=== PATIENT | male | born 1955 | race Caucasian/White ===

== ENCOUNTER 2017-09-03 19:04 | Inpatient (IN) | payer OTHER ==
[~2017-09-03] VITALS: Ht 170.2 cm; Wt 68.1 kg
[2017-09-03 19:05] VITALS: BP 115/76
[2017-09-03] MEDS ORDERED: FLOMAX0.4 MG PO (19:39)
[2017-09-03] MEDS ORDERED: ATRIPLA TABLET1 EACH PO (19:39)
[2017-09-03 19:57] LABS: HEMATOCRIT 35.3 % (42.0-52.0); HEMOGLOBIN 12.2 gm/dL (14.0-18.0); MCH 33.7 pg (26.0-34.0); MCHC 34.6 g/dL (28.0-37.0); MCV 97.4 fL (80.0-100.0); RBC 3.62 mil/uL (4.50-6.00); RDW 12.7 % (10.5-14.5); WBC 19.9 thou/uL (4.0-11.0)
[2017-09-03 20:04] LABS: CREATININE 1.3 mg/dL (0.7-1.3); POTASSIUM 3.9 mmol/L (3.5-5.1)
[2017-09-03 20:10] LABS: URINE BILIRUBIN NEGATIVE (Negative); URINE BLOOD NEGATIVE (Negative); URINE CLARITY CLEAR; URINE COLOR YELLOW; URINE GLUCOSE-RANDOM* NEGATIVE (Negative); URINE KETONES NEGATIVE (Negative); URINE LEUKOCYTES-REFLEX NEGATIVE (Negative); URINE NITRITE-REFLEX NEGATIVE (Negative); URINE PROTEIN (DIPSTICK) 2+ (Negative); URINE SPECIFIC GRAVITY <= 1.005 (1.005-1.035)
[2017-09-03 20:10] LABS: ALBUMIN 2.3 g/dL (3.4-5.0); TOTAL BILIRUBIN 0.4 mg/dL (<0.1-1.0); TOTAL PROTEIN 6.8 g/dL (6.4-8.2)
[2017-09-03 20:18] LABS: SQUAMOUS 0-3 Few /LPF (0-3)
[2017-09-03 20:19] LABS: BACTERIA-REFLEX 1-9 Few /HPF (None Seen); CRYSTALS None Seen /LPF (None Seen); FINE GRANULAR CASTS 0-3 Few /LPF (None Seen); URINE RBC 0-2 Rare /HPF (0-2); URINE WBC-REFLEX 0-5 Rare /HPF (0-5)
[2017-09-03 21:42] VITALS: BP 115/76
[2017-09-03 22:07] VITALS: BP 128/65
[2017-09-03 23:00] VITALS: BP 114/71
[2017-09-04] VITALS (15 sets, daily range): BP systolic 90–127; BP diastolic 46–79
[2017-09-04 04:09] LABS: ABSOLUTE NEUTROPHILS 12.6 thou/uL (1.4-8.2); BASOPHILS 0.4 % (0.0-2.0); EOSINOPHILS 1.2 % (0.0-3.0); HEMATOCRIT 31.4 % (42.0-52.0); LYMPHOCYTES 7.9 % (24.0-44.0); MCH 34.1 pg (26.0-34.0); MCHC 35.1 g/dL (28.0-37.0); MONOCYTES 11.5 % (1.0-8.0); PLATELET COUNT 398 thou/uL (150-400); RBC 3.23 mil/uL (4.50-6.00); RDW 12.7 % (10.5-14.5); WBC 15.9 thou/uL (4.0-11.0)
[2017-09-04 04:30] LABS: ALBUMIN 1.9 g/dL (3.4-5.0); CALCIUM 8.4 mg/dL (8.5-10.1); POTASSIUM 3.7 mmol/L (3.5-5.1); TOTAL BILIRUBIN 0.5 mg/dL (<0.1-1.0); TOTAL PROTEIN 5.8 g/dL (6.4-8.2)
[2017-09-05 03:40] VITALS: BP 116/73
[2017-09-05 05:59] LABS: HEMATOCRIT 32.4 % (42.0-52.0); HEMOGLOBIN 11.1 gm/dL (14.0-18.0); MCH 33.6 pg (26.0-34.0); MCHC 34.2 g/dL (28.0-37.0); MCV 98.1 fL (80.0-100.0); RBC 3.3 mil/uL (4.50-6.00); RDW 13.1 % (10.5-14.5); WBC 14.4 thou/uL (4.0-11.0)
[2017-09-05 06:08] LABS: CALCIUM 8.5 mg/dL (8.5-10.1); POTASSIUM 3.9 mmol/L (3.5-5.1)
[2017-09-05 06:13] LABS: GGTP 210 U/L (15-85)
[2017-09-05 08:15] VITALS: BP 115/75
[2017-09-05 12:02] VITALS: BP 120/85
[2017-09-05] MEDS ORDERED: AUGMENTIN 875-1 EACH PO (12:21)
[2017-09-05 12:39] VITALS: BP 120/85
== END 2017-09-05 14:33 | disposition home or self-care (01) | DRG 871 ==
LOC: ER 19:04 → 3W 20:29 → ICU 20:29 → EROBS 20:29 → ICU 22:06 → 3W 09-04 11:29
PROVIDERS: Emergency Medicine; Hospitalist; Internal Medicine Gastroenterology; Nurse Practitioner; Nurse Practitioner Family
DX: A41.9 Sepsis, unspecified organism (principal); E43 Unspecified severe protein-calorie malnutrition; E87.1 Hypo-osmolality and hyponatremia; K63.89 Other specified diseases of intestine; K21.9 Gastro-esophageal reflux disease without esophagitis; K59.00 Constipation, unspecified; F17.210 Nicotine dependence, cigarettes, uncomplicated; K42.9 Umbilical hernia without obstruction or gangrene; K52.9 Noninfective gastroenteritis and colitis, unspecified; Z86.010 Personal history of colon polyps; Z88.6 Allergy status to analgesic agent; Z80.1 Family history of malignant neoplasm of trachea, bronchus and lung
CPT/HCPCS: 10078; 10779

== ENCOUNTER → 2017-09-03 | Outpatient (CLI) | payer OTHER ==
[~2017-09-03] MED LIST: ATRIPLA TABLET1 EACH PO; AUGMENTIN 875-1 EACH PO; FLOMAX0.4 MG PO
[2017-09-03 16:48] LABS: CREATININE 1.2 mg/dL (0.7-1.3)
== END ==
LOC: LAB 16:22 → CAT 16:22
PROVIDERS: Family Medicine
DX: N40.0 Benign prostatic hyperplasia without lower urinary tract symptoms (principal); K40.90 Unilateral inguinal hernia, without obstruction or gangrene, not specified as recurrent; I70.0 Atherosclerosis of aorta; M51.36 Other intervertebral disc degeneration, lumbar region